=== PATIENT | male | born 1985 | race Caucasian/White ===

== ENCOUNTER → 2020-09-09 07:52 | Outpatient (CLI) | payer OTHER, SELFPAY ==
--- NOTE | ~2020-09-09 | MR_ITS ---
EXAMINATION: MR foot LT wo con DATE: 09/09/2020 08:57 INDICATION: Left foot pain TECHNIQUE: Magnetic resonance imaging (MRI) of the left fore/mid foot was performed without intraveno us contrast. Sequences included sagittal T1-weighted FSE, sagittal fluid sensitive FSE STIR, coronal PD-weighted FS FSE, coronal T1-weighted FSE, axial PD-weighted FS FSE, and axial PD-weighted FSE. COMPARISON: None. FINDINGS: Medial ankle ligaments: Deep and superficial deltoid ligaments as well as the spring ligament are normal. Lateral ankle ligaments: The anterior and posterior inferior tibiofibular ligaments are normal. The anterior talofibular, calc aneofibular and posterior talofibular ligaments are normal. Tendons: Achilles tendon is normal. Small amount of fluid in the peroneal tendon sheath consistent with mild t enosynovitis extending along the normal-appearing peroneus longus and brevis tendons. The tibialis an terior and extensor hallucis longus and extensor digitorum longus tendons are normal. The tibialis po sterior, flexor digitorum longus and flexor hallucis longus tendons are normal. Plantar fascia: Plantar aponeurosis is normal. Mid and forefoot ligaments: Lisfranc ligament complex is normal. Collateral ligament complexes at the metatarsophalangeal and int erphalangeal joints are normal. Bones/fluid/other: Bone alignment is normal. Normal marrow signal with no fracture, reactive edema or pathologic marrow replacing process. Mild osteoarthritis at the first metatarsophalangeal joint. Remaining joint spaces appear normal with no erosions. Physiologic amount of fluid in the joint spaces. Intrinsic musculatu re of the foot is normal. IMPRESSION: 1. Mild peroneal tenosynovitis. 2. Mild osteoarthritis at the first metatarsophalangeal joint. Reviewed, dictated and finalized at location A.
== END ==
PROVIDERS: PCP Internal Medicine; Visit Provider Internal Medicine
DX: M79.672 Pain in left foot (principal); M65.872 Other synovitis and tenosynovitis, left ankle and foot; M19.072 Primary osteoarthritis, left ankle and foot
CPT/HCPCS: 73718

== ENCOUNTER 2020-12-24 10:11 | Outpatient (CLI) | payer OTHER, SELFPAY ==
--- NOTE | 2020-12-24 11:00 | NEURO_ITS ---
Impression: # Complains of left foot pain and discomfort. # Normal nerve conduction study including F-waves and lateral planter nerve. # No evidence of Tarsal Tunnel Syndrome. # Normal needle/EMG exam. # Clinical correlation recommended. Nerve Conduction Studies Anti Sensory Summary Table Stim Site NR Peak (ms) P-T Amp (?V) Site1 Site2 Delta-P (ms) Dist (cm) Obey (m/s) Left Sup Fibular Anti Sensory (Ant Lat Mall) 14 cm 3.8 15.3 14 cm Ant Lat Mall 3.8 16.0 42 Left Sural Anti Sensory (Lat Mall) Calf 3.7 25.3 Calf Lat Mall 3.7 16.0 43 Motor Summary Table Stim Site NR Onset (ms) O-P Amp (mV) Site1 Site2 Delta-0 (ms) Dist (cm) Obey (m/s) Left Lateral Plantar Motor (ADM) Med Mall 4.8 2.7 Left Peroneal Motor (Vastus Med) Ankle 4.8 5.9 Popit Ankle 9.5 42.0 44 Popit 14.3 3.7 Left Tibial Motor (Abd Lew Brev) Ankle 4.8 1.6 Knee Ankle 9.7 45.0 46 Knee 14.5 1.5 F Wave Studies NR F-Lat (ms) L-R F-Lat (ms) Left Peroneal (Mrkrs) (EDB) 54.38 Left Tibial (Mrkrs) (Abd Hallucis) 54.97 EMG Side Muscle Nerve Root Ins Act Fibs Amp Dur Recrt Comment Left AntTibialis Dp Br Fibular L4-5 Nml Nml Nml Nml Nml Left Gastroc Tibial S1-2 Nml Nml Nml Nml Nml Left Fibularis Long Sup Br Fibular L5-S1 Nml Nml Nml Nml Nml Left Flex Dig Long Tibial L5-S2 Nml Nml Nml Nml Nml Left Ext Dig Brev Dp Br Fibular L5, S1 Nml Nml Nml Nml Nml Left AbdHallucis MedPlantar S1-2 Nml Nml Nml Nml Nml MTDD
== END 2020-12-24 10:12 | disposition home or self-care (01) ==
LOC: ANHNEURO 10:15
PROVIDERS: PCP Internal Medicine; Visit Provider Internal Medicine
DX: M79.672 Pain in left foot (principal); R20.0 Anesthesia of skin
CPT/HCPCS: 95886; 95909